=== PATIENT | male | born 1940 | race Caucasian/White ===

== ENCOUNTER 2016-09-04 12:57 | Outpatient (RCR) | payer MEDICARE, BC ==
[~2016-09-04 12:57] MED LIST: AMBIEN 5MG TABLE5 MG PO; ASPI325T6 PO; ASPIRIN 81M81 MG/TA2 PO; ATARAX 25MG25 MG/TAB PO; AZOPT 10 ML10 ML OU; BETIMOL 0.5% OPH5 ML OU; BYSTOLIC5 MG PO; COMBIGAN 0.2%-0.5 ML OU; CRESTOR5 MG PO; CYMBALTA 60MG60 MG PO; DESYREL 50MG50 MG PO; EFFIENT10 M1 PO; EFFIENT10 MG PO; HEPARIN SOD5000 U/ML IV; HUMALOG100 U/ML SQ; HUMULIN 70 U/ML10 ML SQ; INSLANT SQ; LANTUS100 U/ML SQ; LIPITOR80 MG PO; LISINOPRIL5 MG PO; LOTREL 5 MG-401 CAP PO; LOTREL PO; LOTRIMIN1% TP; LOVAZA1 GM PO; LYRICA 25MG CAP25 MG PO; LYRICA 50MG CAP50 MG PO; MORP4 IV; NEURONTIN100 MG PO; NITROSTAT0.4 MG/TAB SL; NS INT FLUSH 1010 ML IV; OMEGA-3 FISH1000 MG PO; OMEGA-3 FISH1200 MG PO; PERCOCET 325 MG1 TA2 PO; PHENERGAN 25 TA25 MG PO; PHENERGAN25 MG RC; PLAVIX 75MG TAB75 MG PO; ROBITUSSIN100 MG/5 M PO; ST. JOSEPH81 M2 PO; TOPROL XL25 MG PO; TRIAZOLAM0.25 MG PO; ULTRAM 50MG TAB50 MG PO; XALATAN EYE DROPS OD; [UNRECOGNIZED DRUG - CODE] PO
== END 2016-09-15 | disposition home or self-care (01) ==
LOC: COL.CR
DX: Z48.812 Encounter for surgical aftercare following surgery on the circulatory system (principal); Z95.5 Presence of coronary angioplasty implant and graft; I20.0 Unstable angina; I25.10 Atherosclerotic heart disease of native coronary artery without angina pectoris; E78.5 Hyperlipidemia, unspecified; E11.9 Type 2 diabetes mellitus without complications

== ENCOUNTER 2016-12-04 12:01 | Outpatient (RCR) | payer MEDICARE, BC | END 2016-12-18 11:48 | disposition home or self-care (01) | LOC: COL.CR 12:01 | DX: Z48.812 Encounter for surgical aftercare following surgery on the circulatory system (principal); I25.110 Atherosclerotic heart disease of native coronary artery with unstable angina pectoris ==

== ENCOUNTER 2017-01-21 21:55 | Emergency (ER) | payer MEDICARE, BC ==
[~2017-01-21] VITALS: Ht 165.1 cm; Wt 88.6 kg
[2017-01-21 22:03] VITALS: TEMP 98
[2017-01-21] MEDS ORDERED: LEVEMIR SQ (22:26)
[2017-01-21 22:41] LABS: BASO # 0.1 (0.0-0.2); BASO % 0.8 % (0.0-2.0); EOS # 0.4 (0.0-0.7); EOS % 3.3 % (0-4.0); GRAN # 8.8 (1.4-6.5); GRAN % 75.3 % (42.2-75.2); HEMATOCRIT 41.7 % (42.0-52.0); LYMPH # 1.6 (1.2-3.4); MEAN CELL VOLUME 85 fl (80.0-100.0); MEAN CORPUSCULAR HEMOGLOBIN 29 pg (27.0-31.0); MEAN CORPUSCULAR HGB CONC 34 g/dl (33.0-37.0); MONO # 0.7 (0.1-0.6); MONO % 6.2 % (1.7-9.3); PLATELET COUNT 215 K/mm3 (130-400); RED BLOOD COUNT 4.91 M/mm3 (4.20-5.60); REDCELL DISTRIBUTION WIDTH-CV 14.2 % (11.5-14.5); WHITE BLOOD COUNT 11.7 K/mm3 (4.8-10.8)
[2017-01-21 22:50] LABS: ALBUMIN 3.8 gm/dL (3.5-5.0); BILIRUBIN,TOTAL 0.6 mg/dL (0.0-1.0); CALCIUM 8.8 mg/dL (8.4-10.2); CREATININE, serum 1.02 mg/dL (0.66-1.25); POTASSIUM 4.9 mmol/L (3.4-5.0); TOTAL PROTEIN 7.1 gm/dL (6.4-8.2)
[2017-01-21 22:51] LABS: PARTIAL THROMBOPLASTIN TIME 31.2 SECONDS (26.0-37.0)
[2017-01-21 23:01] LABS: TROPONIN-I 0.083 ng/mL (0.000-0.034)
[2017-01-21 23:30] VITALS: BP 138/75; PULSE 74
== END 2017-01-21 23:52 | disposition short-term general hospital (02) ==
LOC: COL.ER 21:55
PROVIDERS: Family Medicine
DX: I20.0 Unstable angina (principal); I25.10 Atherosclerotic heart disease of native coronary artery without angina pectoris; I10 Essential (primary) hypertension; Z95.5 Presence of coronary angioplasty implant and graft; Z79.82 Long term (current) use of aspirin
CPT/HCPCS: J1644; J2270

== ENCOUNTER 2018-07-22 06:56 | Outpatient (CLI) | payer MEDICARE, BC ==
[~2018-07-22] VITALS: Ht 163.8 cm; Wt 84.8 kg
[~2018-07-22 06:56] MED LIST changes: +BETIMOL 5 ML5 ML OU; +BRILINTA90 MG PO; +CRESTOR 10MG10 MG PO; +IRON TABLETS325 MG PO; +LEVEMIR SQ; +LEVEMIR100 U/ML SQ; +LOTREL 5/20 CAP1 CAP PO; +MASON NATURAL1200 MG PO; +NEXIUM 40MG40 MG PO; +NYSTATIN CREAM15 GM TP; +PRILOSEC 20MG20 MG PO
[2018-07-22 07:31] VITALS: BP 142/65; PULSE 76; TEMP 97.8
[2018-07-22] MEDS ORDERED: PROTONIX 40MG T40 MG PO (08:03)
--- NOTE | 2018-07-22 08:07 | NUR ---
PATIENT BROUGHT TO BAY 6 VIA WHEELCHAIR WITH AT HIS SIDE. VS TAKEN, ALERT AND ORIENTED X 3, DENIES PAIN, RESPIRATIONS EVEN AND UNLABORED, HR WNL. CALL LIGHT AT BEDSIDE WITHIN REACH, WILL CONTINUE TO MONITOR.
[2018-07-22 09:53] VITALS: BP 141/69; PULSE 78; TEMP 97.5
[2018-07-22 10:08] VITALS: BP 128/64; PULSE 75
[2018-07-22 10:23] VITALS: BP 148/69; PULSE 74
[2018-07-22 10:38] VITALS: BP 152/69; PULSE 74
[2018-07-22 10:43] LABS: PLEURAL FLUID RBC 2000 /mm3 (0-0); PLEURAL FLUID WBC 1612 /mm3
[2018-07-22 10:47] LABS: PLEURAL FLUID APPEARANCE HAZY; PLEURAL FLUID COLOR YELLOW
[2018-07-22 10:48] LABS: GLUCOSE,PLEURAL FLUID 128 mg/dL; TOTAL PROTEIN,PLEURAL FLUID 2.8 gm/dL
--- NOTE | 2018-07-22 11:14 | NUR ---
PATIENT ARRIVES FROM or TO BAY 6 VIA CART. [employer] Juice and muffin given. Post op vital signs started. Alert and oriented x 3. Call light within reach.
--- NOTE | 2018-07-22 11:16 | NUR ---
vital signs remain stable, will continue to monitor. call light within reach.
[2018-07-22 11:18] VITALS: BP 140/70; PULSE 76
--- NOTE | 2018-07-22 11:18 | NUR ---
VITAL SIGNS REMAIN STABLE, WILL CONTINUE TO MONITOR. CALL LIGHT WITHIN REACH.
--- NOTE | 2018-07-22 11:20 | NUR ---
VITL SIGNS REMAIN WNL. DISCHARGE INSTRUCTIONS GIVEN, VERBALIZED UNDERSTANDING.
--- NOTE | 2018-07-22 11:21 | NUR ---
PATIENT DISCHARGED TO HOME VIA WHEELCHAIR TO PERSONAL CAR.
== END 2018-07-22 10:54 | disposition home or self-care (01) ==
LOC: SDCO 06:56
PROVIDERS: Internal Medicine Pulmonary Disease
DX: J90 Pleural effusion, not elsewhere classified (principal); I27.20 Pulmonary hypertension, unspecified; Z88.0 Allergy status to penicillin; Z88.2 Allergy status to sulfonamides; Z88.8 Allergy status to other drugs, medicaments and biological substances
CPT/HCPCS: J2270

== ENCOUNTER → 2018-07-23 | Outpatient (CLI) | payer MEDICARE, BC ==
[~2018-07-23] MED LIST changes: +PROTONIX 40MG T40 MG PO
== END ==
LOC: COL.VAS 09:55
DX: I27.20 Pulmonary hypertension, unspecified (principal); I35.0 Nonrheumatic aortic (valve) stenosis; I34.0 Nonrheumatic mitral (valve) insufficiency

== ENCOUNTER 2020-04-01 12:38 | Emergency (ER) | payer MEDICARE, BC ==
[2020-04-01 13:02] LABS: HEMATOCRIT 33.7 % (42.0-52.0); HEMOGLOBIN 10.1 g/dl (13.5-18.0); MEAN CELL VOLUME 89 fl (80.0-100.0); MEAN CORPUSCULAR HEMOGLOBIN 27 pg (27.0-31.0); MEAN CORPUSCULAR HGB CONC 30 g/dl (33.0-37.0); MEAN PLATELET VOLUME 10.1 fl (7.4-10.4); PLATELET COUNT 176 K/mm3 (130-400); RED BLOOD COUNT 3.79 M/mm3 (4.20-5.60); REDCELL DISTRIBUTION WIDTH-CV 15.7 % (11.5-14.5)
[2020-04-01 13:05] LABS: INR 1.7 (0.8-3.0); PROTHROMBIN TIME 18.9 SECONDS (9.7-12.8)
[2020-04-01 13:15] LABS: ALBUMIN 3.4 gm/dL (3.5-5.0); BILIRUBIN,TOTAL 0.6 mg/dL (0.0-1.0); CREATININE, serum 2.7 (0.66-1.25); MAGNESIUM 2.3 mg/dL (1.6-2.3); POTASSIUM 4.7 mmol/L (3.4-5.0); TOTAL PROTEIN 6.3 gm/dL (6.4-8.2)
[2020-04-01 13:17] LABS: ANISOCYTOSIS 1+; BAND 16 % (0-10); HYPOCHROMIA 1+; LYMPHOCYTE 20 % (20.0-51.0); METAMYELOCYTE 2 % (0-0); MYELOCYTE 3 % (0-0); NEUTROPHILS 52 % (42.0-75.2); PLATELET ESTIMATE NORMAL (NORMAL)
[2020-04-01 13:26] LABS: TROPONIN-I 0.024 ng/mL (0.000-0.035)
[2020-04-01 13:33] VITALS: BP 107/51; PULSE 51
[2020-04-01 17:56] LABS: ARTERIAL BLD GAS O2 SATURATION 16.8 % (92-100); ARTERIAL BLD GAS TCO2 CT 20.2; ARTERIAL BLOOD GAS BASE EXCESS -15.4 (-2-2); ARTERIAL BLOOD GAS HCO3 17.3 meq/L (22-26)
[2020-04-01 17:56] LABS: ARTERIAL BLD GAS O2 SATURATION 16.5 % (92-100); ARTERIAL BLD GAS TCO2 CT 20.2; ARTERIAL BLOOD GAS BASE EXCESS -15.9 (-2-2); ARTERIAL BLOOD GAS HCO3 17.3 meq/L (22-26)
[2020-04-01 17:57] LABS: ARTERIAL BLOOD GAS PCO2 94.2 mmHg (35-45); ARTERIAL BLOOD GAS PO2 20.7 mmHg (80-100); ARTERIAL BLOOD GAS pH 6.88 (7.35-7.45)
[2020-04-01 17:58] LABS: ARTERIAL BLOOD GAS PCO2 93.4 mmHg (35-45); ARTERIAL BLOOD GAS PO2 21.4 mmHg (80-100); ARTERIAL BLOOD GAS pH 6.89 (7.35-7.45)
== END 2020-04-01 14:30 | disposition short-term general hospital (02) ==
LOC: COL.ER 12:38
PROVIDERS: Emergency Medicine
DX: T82.897A Other specified complication of cardiac prosthetic devices, implants and grafts, initial encounter (principal); E87.2 Acidosis; R06.89 Other abnormalities of breathing; I25.10 Atherosclerotic heart disease of native coronary artery without angina pectoris; Z79.82 Long term (current) use of aspirin; Z79.4 Long term (current) use of insulin
CPT/HCPCS: J0171; J0330; J0461; J2250; J2310; J7030